=== PATIENT | male | born 1985 | race Caucasian/White ===

== ENCOUNTER 2024-07-08 18:12 | Emergency (ER) | payer OTHER ==
[2024-07-08 19:27] LABS: CORONAVIRUS COVID-19 NAA NEGATIVE (NEGATIVE); INFLUENZA A NAA NEGATIVE (NEGATIVE); INFLUENZA B NAA NEGATIVE (NEGATIVE); RESPIRATORY SYNCYTIAL VIR NAA NEGATIVE (NEGATIVE)
== END 2024-07-08 20:25 | disposition left against medical advice (07) ==
LOC: MW.ED 18:12
DX: Z53.21 Procedure and treatment not carried out due to patient leaving prior to being seen by health care provider (principal)
CPT/HCPCS: 0241U